=== PATIENT | male | born 1995 | race Caucasian/White ===

== ENCOUNTER 2018-03-01 13:23 | Emergency (ER) | payer OTHER ==
[2018-03-01 13:27] VITALS: BP 144/84; PULSE 96; RESP 18; TEMP 98; O2SAT 99
--- NOTE | 2018-03-01 13:43 | PD ---
HPI Chief Complaint: Injury Time Seen by Provider: 13:37 Travel History International Travel<30 days: No Contact w/Intl Traveler<30days: No Traveled to known affect area: No History of Present Illness HPI 23-year-old male presents emergency department status post trip and fall with left knee pain. Patient has history of MR. He cannot tell me exactly how he fell, but he states he "twisted his left knee and fell". Parents are here with him states they newly fell from the sound, and the fact that his glasses and remote were across the room. This happened earlier this morning. Pain is currently 8 out of 10, and worse with ambulation or movement. Patient denies numbness or tingling distally. He has no known drug allergies PFSH Past Medical History Developmental Delay: Yes (autism) Tetanus Vaccination: < 5 Years Past Surgical History Surgical History: No Previous Surgery Social History Alcohol Use: No Tobacco Use: No Substance Use: No Allergies-Medications (Allergen,Severity, Reaction): Coded Allergies: No Known Allergies (Unverified , 03/01/18) Reported Meds & Prescriptions Reported Meds & Active Scripts Active Ibuprofen 800 Mg Tab 800 Mg PO Q8H PRN Review of Systems Except as stated in HPI: all other systems reviewed are Neg General / Constitutional: No: Fever Eyes: No: Visual changes HENT: No: Headaches Cardiovascular: No: Chest Pain or Discomfort Respiratory: No: Shortness of Breath Gastrointestinal: No: Abdominal Pain Genitourinary: No: Dysuria Musculoskeletal: Positive: Arthralgias, Limited ROM, Pain Skin: No Rash Neurologic: No: Weakness Psychiatric: No: Depression Endocrine: No: Polydipsia Hematologic/Lymphatic: No: Easy Bruising Physical Exam Narrative GENERAL: Patient appears in moderate distress. He is using crutches to ambulate SKIN: Warm and dry. Normal color. Normal turgor. No abrasions or ecchymosis noted HEAD: Atraumatic. Normocephalic. EYES: Pupils equal and round. No scleral icterus. No injection or drainage. ENT: No nasal bleeding or discharge. Mucous membranes pink and moist. Pharynx is clear. No dental injury. Airway is patent. NECK: Trachea midline. No bony tenderness or step-off. Range of motion is full without tenderness CARDIOVASCULAR: Regular rate and rhythm. RESPIRATORY: No accessory muscle use. Clear to auscultation. Breath sounds equal bilaterally. GASTROINTESTINAL: Abdomen soft, non-tender, nondistended. Hepatic and splenic margins not palpable. MUSCULOSKELETAL: Extremities without clubbing, cyanosis, or edema. No obvious deformities. Left knee has mild effusion noted with no significant increased warmth. Range of motion is intact but limited secondary to pain. No obvious laxity is noted with exam. Exam somewhat limited secondary to patient's pain. NEUROLOGICAL: Awake and alert. No obvious cranial nerve deficits. Motor grossly within normal limits. Five out of 5 muscle strength in the arms and legs. Normal speech. PSYCHIATRIC: Appropriate mood and affect; insight and judgment normal. Data Data Last Documented VS Vital Signs Date Time Temp Pulse Resp B/P (MAP) Pulse Ox O2 Delivery O2 Flow Rate FiO2 03/01/18 13:27 98.0 96 18 144/84 (104) 99 Orders Orders Knee, Complete (4vws) (03/01/18 13:41) Ice/Cold Pack (03/01/18 13:41) Splint Or Brace Apply/Monitor (03/01/18 13:41) Ibuprofen (Motrin) (03/01/18 13:45) MDM Medical Decision Making Medical Screen Exam Complete: Yes Emergency Medical Condition: Yes Differential Diagnosis Left knee pain. Left knee sprain. Possible fracture. Trip and fall. Narrative Course Patient is medically stable at time of exam. Patient is given 800 mg ibuprofen p.o. and ice pack is applied to the injured area. X-ray of the left knee is obtained. The immobilizer was placed on the left knee. X-ray showed: Four view examination of the left knee demonstrates no evidence of fracture or dislocation. Bony mineralization is normal. The articular surfaces are intact. The suprapatellar soft tissues have a normal configuration. Patient is to wear knee immobilizer, use crutches as needed, and take ibuprofen 800 mg 3 times daily with food #30. Patient should elevate and ice it frequently. Patient to follow-up with his primary care physician or Dr. Alvarez, the orthopedic on-call if symptoms do not improve. Diagnosis Primary Impression: Strain of left knee Qualified Codes: S86.912A - Strain of unspecified muscle(s) and tendon(s) at lower leg level, left leg, initial encounter Referrals: Mike Kelly MD as needed Patient Instructions: Crutch Instructions (ED), General Instructions, Knee Immobilizer (DC), Swollen Knee Joint (ED) Additional Instructions: Patient is given 800 mg ibuprofen p.o. and ice pack is applied to the injured area. X-ray of the left knee is obtained. The immobilizer was placed on the left knee. X-ray showed: Four view examination of the left knee demonstrates no evidence of fracture or dislocation. Bony mineralization is normal. The articular surfaces are intact. The suprapatellar soft tissues have a normal configuration. Patient is to wear knee immobilizer, use crutches as needed, and take ibuprofen 800 mg 3 times daily with food #30. Patient should elevate and ice it frequently. Patient to follow-up with his primary care physician or Dr. Alvarez, the orthopedic on-call if symptoms do not improve. Med/Other Pt SpecificInfo: Prescription(s) given Scripts Ibuprofen (Ibuprofen) 800 Mg Tab 800 MG PO Q8H Y for Pain/Inflammation, #30 TAB 0 Refills Prov: Ameya Grijalva MD 03/01/18 Disposition: 01 DISCHARGE HOME Condition: Stable Alex Gonzalez Mar 01, 2018 13:43
[2018-03-01] MEDS ORDERED: IBUPROFEN 800 MG TAB PO ONE (13:45)
[2018-03-01] MEDS ORDERED: IBUP1TAB7 PO (14:04)
--- NOTE | 2018-03-01 14:14 | RADRPT ---
EXAM DATE/TIME: 03/01/2018 14:00 [facility] COMPARISON: No previous studies available for comparison. INDICATIONS : Left knee pain, fell last night. MEDICAL HISTORY : None. SURGICAL HISTORY : None. ENCOUNTER: Initial ACUITY: 2 days PAIN SCORE: 8/10 LOCATION: Left knee FINDINGS: Four view examination of the left knee demonstrates no evidence of fracture or dislocation. Bony min eralization is normal. The articular surfaces are intact. The suprapatellar soft tissues have a nor mal configuration. CONCLUSION: No acute fracture. Lucio Salomon MD on March 01, 2018 at 14:12 Board Certified Radiologist. This report was verified electronically.
== END 2018-03-01 14:53 | disposition home or self-care (01) ==
LOC: NEPK 13:23
DX: S86.912A Strain of unspecified muscle(s) and tendon(s) at lower leg level, left leg, initial encounter (principal); W01.0XXA Fall on same level from slipping, tripping and stumbling without subsequent striking against object, initial encounter
CPT/HCPCS: 73564; 99283; E0113; L1830